=== PATIENT | male | born 1990 | race Caucasian/White ===

== ENCOUNTER 2024-12-20 21:09 | Emergency (ER) | payer BC ==
[~2024-12-20] VITALS: Ht 167.6 cm; Wt 68.0 kg
[2024-12-20] MEDS ORDERED: PROPOFOL 20 ML IV ONE (22:25)
[2024-12-20] MEDS: PROPOFOL 200 MG/20 ML VIAL IV ONE (22:36)
[2024-12-20] MEDS ORDERED: IBUP-1490 PO (22:40)
[2024-12-20] MEDS ORDERED: HYDR-3972 PO (23:28)
[2024-12-20] MEDS ORDERED: ONDANSETRON HCL/PF 4 MG/2 ML VIAL ONE (23:36)
[2024-12-20] MEDS ORDERED: MORPHINE SULFATE INJ 4 MG/ML DISP.SYRIN ONE (23:38)
[2024-12-20] MEDS: MORPHINE SULFATE INJ 2 MG/ML DISP.SYRIN IV ONE (23:38)
[2024-12-20] MEDS: ONDANSETRON HCL/PF 4 MG/2 ML VIAL IV ONE (23:39)
[2024-12-21 00:19] VITALS: BP 124/80; TEMP 98.3; O2SAT 96
== END 2024-12-21 00:20 | disposition home or self-care (01) ==
LOC: ER 21:15
DX: S52.532A Colles' fracture of left radius, initial encounter for closed fracture (principal); R60.0 Localized edema; X50.9XXA Other and unspecified overexertion or strenuous movements or postures, initial encounter; Y93.66 Activity, soccer; Y92.89 Other specified places as the place of occurrence of the external cause; Y99.8 Other external cause status
CPT/HCPCS: 25605; 99152; 73110 ×2; 96374; 96375; 99285; J2704; J2270; J2405; G0500

== ENCOUNTER 2025-02-15 06:23 | Day surgery (SDC) | payer BC ==
[~2025-02-15 06:23] MED LIST: HYDR-3972 PO; IBUP-1490 PO
[2025-02-15] MEDS ORDERED: ANESTHESIA TRAY IN PYXIS 1 EA TRAY MC ONE (07:01)
[2025-02-15] MEDS ORDERED: BUPIVACAINE 0.5 % PF 150 MG/30 ML VIAL ONE (07:01)
[2025-02-15] MEDS ORDERED: FENTANYL PF 250MCG/5ML AMPUL ONE (07:23)
[2025-02-15] MEDS ORDERED: ROCURONIUM BROMIDE 50 MG/5 ML ONE (07:23)
[2025-02-15] MEDS ORDERED: ROPIVACAINE HCL 0.5% 5 MG/ML 30ML VIAL ONE (07:32)
[2025-02-15] MEDS ORDERED: BUPIVACAINE MPF 0.5% W/EPI INJ 30 ML VIAL ONE (08:37)
[2025-02-15] MEDS ORDERED: MEPERIDINE25 MG SYR 25 MG/ML VIAL ONE (09:00)
[2025-02-15] MEDS ORDERED: FENTANYL PF 100MCG/2ML AMPUL ONE (09:11)
== END 2025-02-15 11:44 | disposition home or self-care (01) ==
LOC: DS 06:23
PROVIDERS: ATTEND Student in an Organized Health Care Education/Training Program
DX: S52.572A Other intraarticular fracture of lower end of left radius, initial encounter for closed fracture (principal); Z79.899 Other long term (current) drug therapy; Z98.890 Other specified postprocedural states; X58.XXXA Exposure to other specified factors, initial encounter; Y93.89 Activity, other specified; Y92.89 Other specified places as the place of occurrence of the external cause; Y99.8 Other external cause status
CPT/HCPCS: 25609; 73100; A6402; C1713; C1769; J0330; J0690; J2175; J2704; J2795; J3010; J3490; J7030